=== PATIENT | female | born 2005 | race Caucasian/White ===

== ENCOUNTER 2025-06-29 11:59 | Emergency (ER) | payer BC, SELFPAY ==
[2025-06-29] VITALS (11 sets, daily range): BP systolic 93–111; BP diastolic 47–82; PULSE 92–108
[2025-06-29 12:31] LABS: Hematocrit 21.1 % (37.0-47.0); Hemoglobin 6.3 g/dL (12.0-16.0); Mean Corp Hgb Conc. 29.9 g/dL (33.0-37.0); Mean Corpuscular Volume 68.1 fL (81.0-99.0); Nucleated Red Blood Cells % 0 %; Platelet Count 207 10^3/uL (130-400); Red Cell Dist. Width 20.5 % (11.5-14.5)
[2025-06-29 12:44] LABS: HCG, Serum Qualitative Screen Negative
[2025-06-29 12:52] LABS: ALT (SGPT) < 10 U/L (0-35); AST (SGOT) 16 U/L (14-36); Albumin 4.1 g/dl (3.5-5.0); Alkaline Phosphatase 35 U/L (38-126); Blood Urea Nitrogen 13 mg/dl (7-17); Calcium 9.0 mg/dl (8.4-10.2); Carbon Dioxide 23 mmol/L (22-30); Chloride 109 mmol/L (98-107); Glucose 103 mg/dl (70-99); Potassium 4.2 mmol/L (3.5-5.1); Sodium 136 mmol/L (135-145); Total Protein 6.5 g/dl (6.3-8.2); eGFR > 60.00
--- NOTE | 2025-06-29 13:13 | ED.GENMED ---
History of Present Illness
General
Chief Complaint: Fainting/Passed Out
Source: patient and family
Exam Limitations: none
Time Seen by Provider: 06/29/25 12:54
History of Present Illness
History of Present Illness:
19yoF with no significant past medical history presenting with her mother for evaluation after syncopal episode. Patient has been having vaginal bleeding for the past month. Bleeding has been waxing and waning and she thought her bleeding was
tapering off. She started to bleed heavily again 2 days ago. She went through about 5 large overnight pads yesterday. She was passing large clots this morning and went into the shower to clean herself up. While getting out of the shower, she
became dizzy and lost consciousness for about a minute. She has only needed 1 pad since the syncopal episode at 9am. She currently feels somewhat lightheaded. She had outpatient blood work four days ago and hemoglobin was 8.3. She was started on
iron supplementation yesterday by her PCP. She saw a mend worker in the 8th grade for heavy bleeding and was maintained on oral contraceptives up until 2020. She is not sexually active.
Phy Exam
General Physical Exam
General Presentation: no apparent distress
General Skin: warm, dry and pale
General Habitus: normal
General Mental: alert
ENT Exam
ENT Exam: normocephalic
Cardiovascular Exam
Cardiovascular Exam: no murmur and tachycardia
Pulmonary Exam
Pulmonary Exam: lungs clear, no respiratory distress, no rales, no crackles, no rhonchi and no wheezing
Gastrointestinal Exam
Gastrointestinal Exam: non tender, soft and non distended
Neurological Exam
Neurological Exam: alert
[place] Coma Scale
Eye Opening: Spontaneous
Verbal Response: Oriented
Motor Response: Obeys Commands
GCS Total Score: 15
Skin Exam
Skin Exam: warm/dry and pallor
Psychiatric Exam
Psychiatric Exam: normal mood/affect
Course
Orders/Labs/Results
Orders:
Orders
06/29/25 12:17
Test Result ONCE
06/29/25 12:20
Type And Crossmatch [Type+Screen] Urgent
CBC/With Diff [Complete Blood Count/With Diff] Urgent
Comprehensive Metabolic Panel Urgent
HCG, Serum Qualitative Screen Urgent
06/29/25 12:24
Estradiol Urgent
Comment: ADED ON
FSH Urgent
Comment: ADD ON
Luteinizing Hormone Urgent
Comment: ADD ON
Prolactin Urgent
Comment: ADD ON
TSH Reflex To Free T4 Urgent
Comment: ADD ON
TSH Urgent
Comment: ADD ON
06/29/25 12:56
Electrocardiogram (*1) Urgent
Reason for Study: Syncope
EKG- Treatment ONCE
06/29/25 13:10
Blood Bank Products [* Blood Bank Products] Urgent
Blood Bank Products: *Packed RBC Leuko(PRBC's)
Quantity: 1
Transfuse Today: Yes
Reason: Anemia
Cardiac Monitoring- Treatment ONCE
US Pelvis Only (non-obstetric) Urgent
Reason For Exam: vaginal bleeding
06/29/25 13:16
ABO2 Urgent
BBK Wristband Number:
Associate notified that ABO2 has been ordered: [id number]
Date: 06/29/25
Time: 12:29
Business Consult ID: [id number]
06/29/25 13:38
Consult CORRECTIONAL SERGEANT [CORRECTIONAL SERGEANT CONSULT] Urgent
Consulting Provider: Leela Jeffery
Was physician already notified: Yes
06/29/25 13:48
Add On- LAB Routine
Tests Added?: TSH, reflex T4, prolatin, FSH, LH, estradiol
06/29/25 14:56
Add On- LAB Routine
Tests Added?: testosterone-total, DHEAS, DHEAS
06/29/25 15:26
Add On- LAB Routine
Tests Added?: 17 hydroxyprogesterone
06/29/25 16:50
Orthostatic VS- Treatment ONCE
06/29/25 17:35
DHEA Sulfate [S] Routine
DHEA, Direct by TMS [S] Routine
Testosterone Free&Tot (Female) [S] Routine
Abnormal Lab Results
06/29/25
12:20
RBC 3.10 L 10^6/uL
(4.20-5.40)
Hgb 6.3 L* g/dL
(12.0-16.0)
Hct 21.1 L %
(37.0-47.0)
MCV 68.1 L fL
(81.0-99.0)
MCH 20.3 L pg
(27.0-31.0)
MCHC 29.9 L g/dL
(33.0-37.0)
RDW 20.5 H %
(11.5-14.5)
Absolute Lymphs (auto) 1.1 L 10^3/uL
(1.2-3.4)
Lymphocytes % 16.6 L %
(20.5-51.1)
Chloride 109 H mmol/L
(98-107)
Glucose 103 H mg/dl
(70-99)
Alkaline Phosphatase 35 L U/L
(38-126)
Crossmatch IS Only See Detail
06/29/25 12:20
06/29/25 12:20
Vital Signs
Initial and Last Documented VS:
Initial Vital Signs
Temp Pulse Resp Pulse Ox
98.4 F 108 18 98
06/29/25 12:11 06/29/25 12:11 06/29/25 12:11 06/29/25 12:11
Last Documented Vital Signs
Temp Pulse Resp BP Pulse Ox
98.5 F 89 20 99/61 98
06/29/25 17:00 06/29/25 17:30 06/29/25 17:30 06/29/25 17:05 06/29/25 17:30
MDM/Problems Addressed
Differential Diagnosis Includes:
19yoF here after a syncopal episode this AM getting out of the shower. Has been having vag bleeding x 1 month. Hemoglobin 8.3 on outpatient labs 4 days ago and started on PO iron yesterday. HR 108 in triage. BP stable. She is visibly pale.
Differential diagnosis includes: acute blood loss anemia, vasovagal episode, menorrhagia, consider ectopic although she denies being sexually active
Initial ED plan: Labs obtained in triage and hemoglobin is 6.3. HCG negative. Consent obtained and 1 unit PRBCs ordered for transfusion. Pelvic ultrasound also ordered. Will consult gynecology.
*Pulse Oximetry
SaO2: 98
Oxygen Mode of Delivery: Room air
Patient hypoxic: no (98%)
*EKG
Interpreted by ED Provider?: Yes
EKG Intrepretation Date: 06/29/25
Heart Rate: 99
Rate: normal
Rhythm: sinus
[place]: normal axis
Interval: short GA
QRS Pattern: normal QRS
Ischemia: no ischemia
*Critical Care Note
Total Time (30-74mins, 75-104mins- exclusive of procedures): 35
Update Note
Update Note:
Pelvic ultrasound negative for acute findings. Patient was evaluated by gynecology and was initiated on oral contraceptive pills. Per CORRECTIONAL SERGEANT, patient may be discharged after transfusion depending on how she is feeling. Patient reassessed after
transfusion and is feeling significantly improved. She denies any further dizziness. Orthostatic vital signs were obtained and blood pressure remained stable. Offered observation in the hospital which patient is declining. She was advised to f/u
with OBGYN closely in the outpatient setting and strict ED return precautions reviewed. Mother in agreement with plan and patient was discharged in stable condition.
ED Attending Note
-
Portions of this chart may have been created with voice recognition software.� Occasional wrong word or��sound alike� substitutions may have occurred due to the inherent limitations of voice recognition software.
Discharge Plan
Departure
Patient Disposition: Home (Routine Discharge)
Date of Disposition: 06/29/25
Time of Disposition: 17:33
Patient with high blood pressure during this ER visit?: No
Discharge Problem:
Acute blood loss anemia, Menorrhagia, Syncope
Instructions: Heavy periods - ED discharge instructions
Prescriptions:
New
norethindrone ac-eth estradiol [ ()] 1.5-30 mg-mcg tablet
1 tab PO DAILY Qty: 21 1RF
Referrals:
Leela Jeffery, DO [Active, Gynecology]
UNKNOWN - PT DOES,NOT KNOW [Family Provider]
Activity Restrictions/Additional Instructions:
Take your iron supplements daily.
Please call on Tuesday to schedule a follow-up with gynecology. Return to the ER immediately with any worsening symptoms including passing out or if you bleed through >2 pads/hour.
Interventions
Interventions:
*Risk Screen - Suicide Last Done: 06/29/25 12:11
*General Assessment Last Done: 06/29/25 13:23
*Neglect/Abuse Screening Last Done: 06/29/25 12:11
*ED- Fall Risk Assessment Last Done: 06/29/25 13:23
*ED COVID-19 Vaccine History Last Done: 06/29/25 13:05
*Nursing Disposition Last Done: 06/29/25 17:51
ED- Cardiac Assessment Last Done: 06/29/25 13:03
ED- Neurological Assessment Last Done: 06/29/25 13:03
Discharge Date and Time
Discharge Date/Time: 06/29/25 17:51
Print Language: ROMANIAN
--- NOTE | 2025-06-29 14:57 | CON.MD ---
Consultation - Medical
-
19-year-old G0 female, virginal, presented to the emergency room with her mother after syncopal episode at home after taking a shower. Patient reports having prolonged menstrual bleeding since 06/10 with increase in flow yesterday where she was
passing large clots and changing overnight heavy maxi pad every 2 hours. This morning after taking a shower she had a syncopal episode. She has been feeling tired recently. Saw her PCP and had lab work several days ago. Mother reported
hemoglobin was 8.4 at that time. The PCP visit was a virtual visit and her bleeding was not heavy at that time. PCP ordered lab work but mother does not feel thyroid testing was done.
Menarche age 13. History of heavy menses in eighth grade. Was seen at [facility] adolescent [employer] and was placed on continuous OCP because she was anemic. They had her taking the pill to skip her menses but after the third month she had breakthrough
bleeding that was heavy. She then started taking her pill and placebo getting a monthly. For 6 to 7 months. She discontinued control pills summer 2019 because her periods had improved and they did not think she needed to continue. She has
not followed up with them since.
Denies being sexually active, ever.
Menses are intermittently irregular. Skipped menses October through December. Missed period in April and most of May. Menses June 09 has persisted for weeks and became heavy yesterday. She was passing clots. Denies any risk for ,
since has never been sexually active. hCG today negative.
ROS: Reports feeling lightheaded earlier but this has improved since laying down. Denies any chest pain or shortness of breath. Notes increased heart rate at times. Denies any nausea, bulimia, eating disorder, liver disease, thyroid disease.
There is no family history of bleeding tendencies or disorders. No clotting disorders. She denies any acne, abnormal hair growth.
PMH: Anemia. Heavy menses, irregular periods. Hospitalized for croup as a child.
PSH: [place] teeth-no problems with anesthesia
NKDA
Medications iron 325 mg every other day
Social history: She will be attending [employer] [facility] [employer]. Denies tobacco, alcohol, vaping, recreational drug use of any type.
Family history maternal grandmother endometriosis, maternal grandfather hypertension, maternal great grandmother breast cancer
Physical exam:
General: No acute distress
Heart: Regular
Respirations appear regular and unlabored
Abdomen: Soft, nontender, nondistended. No guarding, rebound, rigidity. No palpable mass. No organomegaly.
Pelvic exam: Was deferred by the patient. Patient aware without exam there may be limitations to diagnosis and treatment. Of note, not sexually active.
Extremities: No calf pain or tenderness
Labs: Creatinine 0.7
AST 16
ALT less than 10
Hemoglobin 6.3/hematocrit 21.1, platelet 207
hCG qualitative negative
Impression:
1. Menorrhagia-prolonged and heavy menses
2. Syncopal episode likely related to anemia, acute on chronic blood loss
3. Anemia related to blood loss-taking iron at home.
4. Anovulatory cycles
- No hirsutism
-No eating disorder
Plan:
Discussed etiologies for abnormal bleeding which include but are not limited to structural abnormalities such as fibroids, polyps, adnexal mass-pelvic ultrasound is pending at the time of this dictation. Likelihood for these abnormalities is small
given her age.
Hormonal etiologies were discussed. She has evidence of anovulatory cycles. Recommend checking TSH, reflex T4, FSH, LH, prolactin, testosterone total, DHEA, DHEA-S to evaluate for thyroid abnormality, PCOS, hyperprolactinemia, late onset CAH (less
likely/less common).
Labs added TSH, reflex T4, testosterone total, DHEA, DHEA-S, 17OHP, prolactin.
Discussed importance of controlling her bleeding. Options were reviewed including OCP, progestins, IUD, Depo-Provera, Nexplanon as potential options. Mother and patient feel most comfortable with starting back on the pill. Will start her on
Loestrin 1.5/30. Take 2 tablets daily for the next 3 days then decrease to 1 p.o. daily for the remainder of the pack. Allow for withdrawal bleed for 1 week and then restarting to second pack taking 1 p.o. daily. Explained it may take several
months for periods and cycle to normalize. I recommended that they have a follow-up appointment in my office in approximately 2 to 3 weeks for reevaluation.
She is asymptomatic sitting on the gurney. Awaiting 1 unit of PRBCs ordered by ER. Discussed with ER personnel. Would wait to see how patient improves from clinical standpoint symptomatically after blood transfusion. She has not had to change
her overnight maxi pad protection since being in the emergency room since 9:00. The patient feels her bleeding has significantly subsided at this point. The pill dosing should help decrease her bleeding/flow significantly in the next 1 to 2 days.
If she is not orthostatic and is asymptomatic could be considered for discharge to home later today. Alternative is to admit overnight in which case labs can be repeated in the morning.
Lengthy conversation was held with the patient and mother. They had opportunity to have their questions answered and these were answered to their satisfaction. Follow-up in the office in 2 to 3 weeks.
Consultation time including [id number] time, review of data, coordination of care over 45 minutes.
Consultation
-
Date/Time Consultation Requested: 06/29/25 1:13pm
Date/Time Consultation Performed: 06/29/25 2:15pm
Requesting Provider: Hui Valenzuela PA-C
Performing Provider: Leela Jeffery DO
Reason for Consultation: anemia, vaginal bleeding
[2025-06-29 15:21] LABS: TSH 2.55 uIU/ml (0.47-4.68)
[2025-06-29 15:54] LABS: FSH 4.1 mIU/ml
== END 2025-06-29 17:51 | disposition home or self-care (01) ==
LOC: EMR 11:59
PROVIDERS: CONSULT PHYSICIAN Obstetrics & Gynecology; EMERGENCY PHYSICIAN Emergency Medicine
DX: D62 Acute posthemorrhagic anemia (principal); N92.0 Excessive and frequent menstruation with regular cycle
CPT/HCPCS: 99285; 36430; 76856; 80053; 82626; 82627; 82670; 83001; 83002; 84146; 84270; 84402; 84403; 84443; 84703; 85025; 86850; 86900; 86901; 86920; 93005; P9016